=== PATIENT | female | born 1990 | race Two or more races ===

== ENCOUNTER 2019-08-04 09:56 | Emergency (ER) | payer MEDICAID, OTHER ==
[~2019-08-04] VITALS: Ht 170.2 cm; Wt 99.8 kg
[2019-08-04 10:53] LABS: Urine Bacteria FEW /hpf (None Seen); Urine Blood TRACE /uL (Negative); Urine Specific Gravity 1.003 (1.001-1.035); Urine WBC 14 /hpf (0 - 5)
[2019-08-04] MEDS ORDERED: SODIUM CHLORIDE 0.9% 500 ML IV ONE (11:24)
[2019-08-04] MEDS ORDERED: SODIUM CHLORIDE 0.9% 1,000 ML IV ONE (11:24)
[2019-08-04] MEDS ORDERED: LIDOCAINE 2%HCL (LOCAL ANESTH.) INJ 20ML MDV ID ONE (11:30)
[2019-08-04] MEDS ORDERED: cefTRIAXone 1GM/50ML D5W 50 ML IV ONE (11:30)
[2019-08-04] MEDS ORDERED: NEOMYCIN-BACITRACIN-POLYM UNITDOSE PKG TOP OINT TOP ONE (11:30)
[2019-08-04] MEDS ORDERED: HYDROmorphone HCL 2 MG/ML VL ONE (13:20)
[2019-08-04] MEDS ORDERED: HYDROmorphone HCL 2 MG/ML VL IV ONE (13:30)
[2019-08-04 14:00] VITALS: BP 119/68
== END 2019-08-04 14:11 | disposition home or self-care (01) ==
LOC: ER 09:56
DX: L02.215 Cutaneous abscess of perineum (principal); N39.0 Urinary tract infection, site not specified
CPT/HCPCS: 56405; 81001; 96365; 96366; 96375; 99285; J0696; J1170; J7040

== ENCOUNTER 2019-08-07 09:52 | Emergency (ER) | payer MEDICAID ==
[~2019-08-07] VITALS: Ht 170.2 cm; Wt 99.8 kg
[2019-08-07 10:18] VITALS: BP 138/76
== END 2019-08-07 11:03 | disposition home or self-care (01) ==
LOC: ER 09:52
DX: L02.214 Cutaneous abscess of groin (principal)

== ENCOUNTER 2019-09-05 23:28 | Observation (INO) | payer MEDICAID | END 2019-09-06 01:50 | disposition home or self-care (01) | DRG 566 | LOC: LDRP 23:28 | PROVIDERS: ADMIT Specialist; ATTEND Specialist | DX: O62.9 Abnormality of forces of labor, unspecified (principal); Z3A.34 34 weeks gestation of pregnancy | CPT/HCPCS: G0378 ×2; 59025; 81002 ==

== ENCOUNTER 2020-03-21 09:56 | Emergency (ER) | payer MEDICAID ==
[~2020-03-21] VITALS: Ht 170.2 cm; Wt 107.5 kg
[2020-03-21 10:25] VITALS: BP 131/77
== END 2020-03-21 11:57 | disposition home or self-care (01) ==
LOC: ER 09:56
DX: M25.512 Pain in left shoulder (principal); M62.838 Other muscle spasm
CPT/HCPCS: 73030